=== PATIENT | male | born 1965 | race African-American/Black ===

== ENCOUNTER 2018-09-27 15:15 | Emergency (ER) | payer OTHER ==
[~2018-09-27] VITALS: Ht 175.3 cm; Wt 90.0 kg
[2018-09-27 20:30] VITALS: BP 136/80
== END 2018-09-27 20:33 | disposition designated cancer center or children's hospital (05) | DRG 87 ==
LOC: ED 15:15
DX: S06.9X1A Unspecified intracranial injury with loss of consciousness of 30 minutes or less, initial encounter (principal); W51.XXXA Accidental striking against or bumped into by another person, initial encounter; Y93.67 Activity, basketball; Y92.149 Unspecified place in prison as the place of occurrence of the external cause